=== PATIENT | male | born 2005 | race African-American/Black ===

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

== ENCOUNTER 2024-01-21 09:10 | Emergency (ER) | payer MEDICAID ==
[~2024-01-21] VITALS: Ht 182.9 cm; Wt 89.0 kg
[2024-01-21 09:17] VITALS: O2SAT 99
[2024-01-21] MEDS ORDERED: IBUP-2029 MT (10:26)
[2024-01-21 10:44] VITALS: BP 161/77
[2024-01-21] MEDS: IBUPROFEN 600MG TABLET PO ONE (10:44)
[2024-01-21 10:46] VITALS: PULSE 75; RESP 17; TEMP 36.39180; O2SAT 100
== END 2024-01-21 10:47 | disposition home or self-care (01) ==
LOC: ER 09:10
DX: S43.102A Unspecified dislocation of left acromioclavicular joint, initial encounter (principal); V99.XXXA Unspecified transport accident, initial encounter; Y93.89 Activity, other specified; Y92.89 Other specified places as the place of occurrence of the external cause; Y99.8 Other external cause status
CPT/HCPCS: 73030; 99283; A4565